=== PATIENT | male | born 1945 | race Caucasian/White ===

== ENCOUNTER 2017-10-09 16:29 | Emergency (ER) | payer BC ==
[~2017-10-09] VITALS: Ht 170.2 cm; Wt 93.4 kg
--- NOTE | 2017-10-09 17:03 | PHYS DOC ---
Past Medical History Past Medical History: DVT Past Surgical History: Appendectomy Smoking: Cigarettes (The patient is a nonsmoker.) Adult General Chief Complaint Chief Complaint: GROIN PAIN HPI HPI Patient is a 72-year-old male who presents to the emergency department for evaluation. He states that he awoke this morning with pain in his left upper middle thigh, and is concerned that he might have a blood clot. He states he has been treated in the past for a blood clot in his right leg, but is not currently on any anticoagulation other than a baby aspirin. He denies any numbness or weakness of any significant edema. He denies any prolonged immobilization or recent travel or injuries. He has not had any urinary symptoms and denied any abdominal or flank pain, or genital pain. He also states that he began noticing that his left hand seem to get tingly and numb at about 11:00 AM this morning, but that has completely resolved. At no point did he have any vision changes, any motor weakness, any headache, or any paresthesias in any other part of his body other than his left hand itself. He states he had an episode of a "TIA" about 10 years ago, when [facility] , but he states his symptoms at that time were vertigo, and he had no other motor symptoms and did not have any kind of residual effect after his brief episode of dizziness at that time. It is unclear have a definitive diagnosis of TIA was made. The patient denies any chest pain, shortness of breath, dizziness or lightheadedness. There are no alleviating or exacerbating factors to his symptoms. Review of Systems Review of Systems Constitutional: Denies fever or chills [] Eyes: Denies change in visual acuity, redness, or eye pain [] HENT: Denies nasal congestion or sore throat [] Respiratory: Denies cough or shortness of breath [] Cardiovascular: The patient denies any shortness of breath, chest pain, palpitations, or orthopnea [] GI: Denies abdominal pain, nausea, vomiting, bloody stools or diarrhea [] : Denies dysuria or hematuria [] Musculoskeletal: Denies back pain or joint pain [] Integument: Denies rash or skin lesions [] Neurologic: Denies headache, focal weakness or sensory changes [] Endocrine: Denies polyuria or polydipsia [] All other systems were reviewed and found to be within normal limits, except as documented in this note. Allergies Allergies Allergies Coded Allergies Type Severity Reaction Last Updated Verified No Known Drug Allergies 10/09/17 No Physical Exam Physical Exam PHYSICAL EXAM: CONSTITUTIONAL: Well developed, well nourished HEAD: normocephalic, atraumatic EENT: PERRL, EOMI. Conjunctivae normal color, sclerae non-icteric; moist mucous membranes. NECK: Supple, non-tender; no meningismus. LUNGS: Lungs CTA, breathing even and unlabored. Normal air movement. HEART: Regular rate and rhythm, no murmur CHEST: No deformity; non-tender ABDOMEN: The abdomen is soft, and non-tender, no masses or bruits. EXTREM: Normal ROM; no deformity, no calf tenderness. Normal pulses palpable in all extremities. There is no pedal edema. There is no reproducible tenderness to palpation, or any skin abnormalities noted in the area of the left thigh. SKIN: No rash; no diaphoresis NEURO: Alert; normal speech and cognition; CN's grossly intact; strength grossly intact without focal deficit. Pinprick sensation is normal. Visual fregoso are intact by confrontation. Finger nose finger testing is normal. Heel dorman testing is normal. BACK: No CVA TTP. GENITOURINARY: Normal external genitalia. There is no testicular tenderness to palpation. There are no palpable hernias. Current Patient Data Vital Signs Vital Signs Date Time Temp Pulse Resp B/P (MAP) Pulse Ox O2 Delivery O2 Flow Rate FiO2 10/09/17 16:40 98.4 84 20 149/72 (97) 97 Room Air 98.4 Lab Values Laboratory Tests Test 10/09/17 17:00 10/09/17 17:38 Urine Collection Type Unknown Urine Color Yellow Urine Clarity Clear Urine pH 6.5 Urine Specific Winifred <=1.005 Urine Protein Negative mg/dL (NEG-TRACE) Urine Glucose (UA) Negative mg/dL (NEG) Urine Ketones (Stick) Negative mg/dL (NEG) Urine Blood Negative (NEG) Urine Nitrite Negative (NEG) Urine Bilirubin Negative (NEG) Urine Urobilinogen Dipstick 1.0 mg/dL (0.2 mg/dL) Urine Leukocyte Esterase Negative (NEG) Urine RBC 0 /HPF (0-2) Urine WBC 0 /HPF (0-4) Urine Squamous Epithelial Cells Occ /LPF Urine Bacteria 0 /HPF (0-FEW) White Blood Count 7.0 x10^3/uL (4.0-11.0) Red Blood Count 4.33 x10^6/uL (4.30-5.70) Hemoglobin 14.5 g/dL (13.0-17.5) Hematocrit 40.6 % (39.0-53.0) Mean Corpuscular Volume 94 fL (79-100) Mean Corpuscular Hemoglobin 33 pg (25-35) Mean Corpuscular Hemoglobin Concent 36 g/dL (31-37) Red Cell Distribution Width 12.7 % (11.5-14.5) Platelet Count 98 x10^3/uL (140-400) L Neutrophils (%) (Auto) 84 % (31-73) H Lymphocytes (%) (Auto) 10 % (24-48) L Monocytes (%) (Auto) 6 % (0-9) Eosinophils (%) (Auto) 0 % (0-3) Basophils (%) (Auto) 0 % (0-3) Neutrophils # (Auto) 5.9 x10^3uL (1.8-7.7) Lymphocytes # (Auto) 0.7 x10^3/uL (1.0-4.8) L Monocytes # (Auto) 0.4 x10^3/uL (0.0-1.1) Eosinophils # (Auto) 0.0 x10^3/uL (0.0-0.7) Basophils # (Auto) 0.0 x10^3/uL (0.0-0.2) Platelet Estimate Decreased (ADEQUATE) Sodium Level 131 mmol/L (136-145) L Potassium Level 3.8 mmol/L (3.5-5.1) Chloride Level 101 mmol/L (98-107) Carbon Dioxide Level 26 mmol/L (21-32) Anion Gap 4 (6-14) L Blood Urea Nitrogen 15 mg/dL (8-26) Creatinine 0.9 mg/dL (0.7-1.3) Estimated GFR (Cockcroft-Gault) 83.2 BUN/Creatinine Ratio 17 (6-20) Glucose Level 178 mg/dL (70-99) H Calcium Level 8.8 mg/dL (8.5-10.1) Total Bilirubin 1.7 mg/dL (0.2-1.0) H Aspartate Amino Transferase (AST) 20 U/L (15-37) Alanine Aminotransferase (ALT) 31 U/L (16-63) Alkaline Phosphatase 60 U/L (46-116) Creatine Kinase 137 U/L (39-308) Total Protein 6.9 g/dL (6.4-8.2) Albumin 3.6 g/dL (3.4-5.0) Albumin/Globulin Ratio 1.1 (1.0-1.7) Laboratory Tests 10/09/17 17:38 Laboratory Tests 10/09/17 17:38 EKG EKG [No sinus rhythm at a rate of 70 beats for minute, normal axis, normal intervals , there are no acute ischemic ST/T changes.] Radiology/Procedures Radiology/Procedures [PROCEDURE: CT HEAD WO CONTRAST CT head without contrast TECHNIQUE: [address] imaging skull base to vertex. HISTORY: Left hand paresthesias. FINDINGS: No intracranial hemorrhage, mass, obstructive hydrocephalus, extra-axial fluid collections or infarction. No acute ischemic changes. Mild generalized brain atrophy. Orbits, mastoids, paranasal sinuses and bones are unremarkable. IMPRESSION: No acute intra-axial CT abnormality. PROCEDURE: VENOUS LOWER EXTREMITY LEFT Left lower extremity venous duplex Doppler ultrasound. TECHNIQUE: Grayscale and duplex Doppler sonography were utilized. HISTORY: Left leg pain. FINDINGS: No DVT by grayscale sonography with compressibility, patent color Doppler blood flow and augmentation of blood flow of the left common femoral vein, profunda femoral vein, superficial femoral vein, popliteal vein. No DVT with patent color Doppler blood flow of the left peroneal and posterior tibial veins in the calf. IMPRESSION: Negative left leg for DVT. ] Course & Med Decision Making Course & Med Decision Making Pertinent Labs and Imaging studies reviewed. (See chart for details) [6:00 PM: Care was turned over to Dr. Slade at shift change, pending imaging results, labs, and final disposition. Report given.] Dr. Carrillo had indicated that if blood work had returned unremarkable that he felt the patient would be appropriate for discharge home. Blood work has returned and no significant abnormalities are noted. Findings of workup have been reviewed with patient and family and patient is eager for discharge home at this time. Patient asked if he needs anything to manage the pain in his groin and indicates that he just needed some peace of mind. Dragon Disclaimer Dragon Disclaimer This electronic medical record was generated, in whole or in part, using a voice recognition dictation system. Departure Departure Impression: Primary Impression: Groin pain Additional Impression: Paresthesia Disposition: 01 HOME, SELF-CARE Condition: STABLE Patient Instructions: Muscle Strain, Paresthesia Additional Instructions: Follow-up with your primary care provider in the next few days. Return to emergency room if symptoms worsen. He may take [id number] NSAIDs or Tylenol as needed for pain. Problem Qualifiers Primary Impression: Groin pain Laterality: unspecified laterality Qualified Codes: R10.30 - Lower abdominal pain, unspecified TIARA CARRILLO MD Oct 09, 2017 17:03 PATRICIA SLADE Jr., DO Oct 09, 2017 18:12
[2017-10-09 17:14] LABS: BILIRUBIN,URINE NEGATIVE (NEG); CLARITY,URINE CLEAR; COLOR,URINE YELLOW; NITRITE,URINE NEGATIVE (NEG); PH,URINE 6.5; PROTEIN,URINE NEGATIVE (NEG-TRACE)
[2017-10-09 17:22] LABS: RBC,URINE 0 /HPF (0-2)
[2017-10-09 17:23] LABS: BACTERIA,URINE 0 /HPF (0-FEW); SQUAMOUS EPITHELIAL CELL,UR OCC /LPF; WBC,URINE 0 /HPF (0-4)
--- NOTE | 2017-10-09 17:35 | RAD ---
CT head without contrast TECHNIQUE: [address] imaging skull base to vertex. HISTORY: Left hand paresthesias. FINDINGS: No intracranial hemorrhage, mass, obstructive hydrocephalus, extra-axial fluid collections or infarction. No acute ischemic changes. Mild generalized brain atrophy. Orbits, mastoids, paranasal sinuses and bones are unremarkable. IMPRESSION: No acute intra-axial CT abnormality. Exposure: One or more of the following individualized dose reduction techniques were utilized for this examination: 1. Automated exposure control 2. Adjustment of the mA and/or kV according to patient size 3. Use of iterative reconstruction technique Electronically signed by: Karl Burns MD (10/09/2017 5:31 PM) [facility]
[2017-10-09 17:41] LABS: BASO % 0 % (0-3); EOS % 0 % (0-3); HEMATOCRIT 40.6 % (39.0-53.0); HEMOGLOBIN 14.5 g/dL (13.0-17.5); LYMPH # 0.7 x10^3/uL (1.0-4.8); LYMPH % 10 % (24-48); MEAN CORPUSCULAR HEMOGLOBIN 33 pg (25-35); MEAN CORPUSCULAR HGB CONC 36 g/dL (31-37); MEAN CORPUSCULAR VOLUME 94 fL (79-100); MONO # 0.4 x10^3/uL (0.0-1.1); MONO % 6 % (0-9); NEUT # 5.9 x10^3uL (1.8-7.7); NEUT % 84 % (31-73); PLATELET COUNT 98 x10^3/uL (140-400); RED BLOOD COUNT 4.33 x10^6/uL (4.30-5.70); RED CELL DISTRIBUTION WIDTH 12.7 % (11.5-14.5)
[2017-10-09 17:53] LABS: CALCIUM 8.8 mg/dL (8.5-10.1); CREATININE 0.9 mg/dL (0.7-1.3); GFR 83.2; POTASSIUM 3.8 mmol/L (3.5-5.1)
--- NOTE | 2017-10-09 17:58 | RAD ---
Left lower extremity venous duplex Doppler ultrasound. TECHNIQUE: Grayscale and duplex Doppler sonography were utilized. HISTORY: Left leg pain. FINDINGS: No DVT by grayscale sonography with compressibility, patent color Doppler blood flow and augmentation of blood flow of the left common femoral vein, profunda femoral vein, superficial femoral vein, popliteal vein. No DVT with patent color Doppler blood flow of the left peroneal and posterior tibial veins in the calf. IMPRESSION: Negative left leg for DVT. Electronically signed by: Karl Burns MD (10/09/2017 5:54 PM) [facility]
[2017-10-09 17:59] LABS: ALBUMIN 3.6 g/dL (3.4-5.0); ALBUMIN/GLOBULIN RATIO 1.1 (1.0-1.7); TOTAL BILIRUBIN 1.7 mg/dL (0.2-1.0); TOTAL PROTEIN 6.9 g/dL (6.4-8.2)
[2017-10-09 18:01] VITALS: BP 131/70
[2017-10-09 18:02] LABS: PLT ESTIMATE DECREASED (ADEQUATE)
--- NOTE | 2017-10-10 06:50 | EKG ---
[facility] [address] [place] [id number] Test Date: 2017-10-09 Test Time: 17:41:24 Pat Name: NIESHA CHRISTIANSON Department: Room: Gender: M Venereal Disease Control Head: : 1945 Requested By: TIARA MCRAE Order Number: [id number] Reading MD: Walter Scales MD Measurements Intervals Junior Rate: 78 P: 47 CO: 176 QRS: 6 QRSD: 86 T: 36 QT: 362 QTc: 416 Interpretive Statements SINUS RHYTHM Electronically Signed On 10-17-2017 10:28:33 CDT by Walter Scales MD
== END 2017-10-09 18:30 | disposition home or self-care (01) ==
LOC: ER 16:29
DX: R10.30 Lower abdominal pain, unspecified (principal); R20.2 Paresthesia of skin; R42 Dizziness and giddiness; Z86.718 Personal history of other venous thrombosis and embolism; Z90.89 Acquired absence of other organs
CPT/HCPCS: 36415; 70450; 80053; 81001; 82550; 85025; 93005; 93971; 99285-25

== ENCOUNTER → 2020-03-10 | Outpatient (CLI) | payer BC ==
[2020-02-05 11:00] VITALS: BP 140/82
[~2020-03-10] MED LIST: APIX5TAB PO; ASPI-630 PO; CONTRAST GIVEN. MC PRN; IOHEXOL 350 MG/ML 100 ML VIAL. IV ONE; MELO15TA23 PO; MULT-154 PO; PANT40TA77 PO
--- NOTE | 2020-03-10 18:20 | RAD ---
EXAM: CT Pulmonary Angiogram INDICATION: Reason: PULMONARY EMBOLISM / Spl. Instructions: IV OMNI 350 100 MLS / History: TECHNIQUE: Multi-detector row images were acquired from the thoracic inlet through the upper abdomen with the use of IV contrast. Sagittal and coronal images were acquired from the transaxial data. AK P images of the pulmonary arteries were obtained. All CT scans performed at this facility utilize dos e optimization techniques as appropriate to the exam, including the following: Automated exposure con trol and adjustment of the mA and/or KV according to patient size (this includes techniques or standa rdized protocols for targeted exams where dose is indication/reason for exam). IV CONTRAST: Administered COMPARISON: CT pulmonary angiogram of 02/01/2020 FINDINGS: PULMONARY ARTERIES: Residual clot burden in the bilateral distal main pulmonary arteries are present , slightly decreased in overall size in the interval. These show some extension into segmental branch es bilaterally and there is some respiratory motion artifact that degrades detail.. CARDIOVASCULAR: Unremarkable Aorta is normal caliber. Heart shows no enlargement of the right ventri cular chamber or bowing or straightening of the interventricular septum. MEDIASTINUM & GRAHAM: No adenopathy or masses. LUNGS: No pulmonary infiltrate, nodule, or other focal abnormality. PLEURAL SPACE: No pleural effusions or pneumothorax. OSSEOUS & SOFT TISSUE: Unremarkable ABDOMEN: The visualized portions of the upper abdomen are unremarkable. IMPRESSION: Improving but not fully resolved clot burden in the bilateral pulmonary arteries consistent with evol ving, acute into chronic pulmonary emboli. Resolved findings of right heart strain. Electronically signed by: Fred Romeo MD (03/10/2020 6:18 PM) [id number]
== END ==
LOC: CT 09:23
PROVIDERS: ATTEND Internal Medicine Pulmonary Disease
DX: I26.99 Other pulmonary embolism without acute cor pulmonale (principal)
CPT/HCPCS: 71275; Q9967

== ENCOUNTER 2020-10-16 20:00 | Emergency (ER) | payer BC ==
[2020-02-05 11:00] VITALS: BP 140/82
[~2020-10-16 20:00] MED LIST changes: -CONTRAST GIVEN. MC PRN; -IOHEXOL 350 MG/ML 100 ML VIAL. IV ONE
== END 2020-10-16 21:30 | disposition left against medical advice (07) ==
LOC: ER 20:00
DX: R42 Dizziness and giddiness (principal); R51.9 Headache, unspecified; R10.9 Unspecified abdominal pain; Z53.21 Procedure and treatment not carried out due to patient leaving prior to being seen by health care provider